=== PATIENT | female | born 1970 | race Caucasian/White ===

== ENCOUNTER 2016-07-14 15:33 | Emergency (ER) | payer OTHER ==
[~2016-07-14] VITALS: Ht 160 cm; Wt 78.1 kg
[~2016-07-14 15:33] MED LIST: IBUP-1542 PO
[2016-07-14 15:35] VITALS: Ht 160 cm; Wt 78.1 kg
[2016-07-14] MEDS ORDERED: DOCU-144 PO (17:30)
[2016-07-14] MEDS ORDERED: HC30CR25 TOP (17:30)
[2016-07-14] MEDS ORDERED: TRAM50TA2 PO (17:30)
--- NOTE | 2016-07-14 17:33 | ERD ---
ER Documentation Chief Complaint Date/Time DATE: 07/14/16 TIME: 17:32 Chief Complaint HAS HEMORRHOIDS, HAS RECTAL PA1N HPI This 45-year-old female complains of pain in her rectal area for last 4 days. She denies any previous history of hemorrhoids and denies any bleeding. She has no measured fevers. ROS All systems reviewed and are negative except as per history of present illness. Medications Home Meds Active Scripts Docusate Sodium* (Colace*) 100 Mg Capsule, 100 MG PO BID, #30 CAP Prov:SUMEET NATHAN MD 07/14/16 Tramadol HCl (Tramadol HCl) 50 Mg Tablet, 50 MG PO Q4 Y for PAIN, #20 TAB Prov:SUMEET NATHAN MD 07/14/16 Hydrocortisone* Topical (Hydrocortisone* Topical) 2.5%-28.3 Gm Cream..g., 1 APPLIC TOP BID for 10 Days, #1 TUB Prov:SUMEET NATHAN MD 07/14/16 Ibuprofen* (Motrin*) 600 Mg Tab, 600 MG PO Q8 for 10 Days, #30 TAB 0 Refills Prov:CHUCK WINSLOW PA-C 10/16/15 PMhx/Soc History of Surgery: Yes (CSECTION X2) Hx Miscellaneous Medical Probl: Yes (DM, ANEMIA, HERNIA) Hx Alcohol Use: No Hx Substance Use: No Hx Tobacco Use: No Smoking Status: Never smoker Physical Exam Vitals Vital Signs Date Time Temp Pulse Resp B/P Pulse Ox O2 Delivery O2 Flow Rate FiO2 07/14/16 15:35 99.1 90 18 157/89 99 Physical Exam Const: [] Alert, [id number] per Head: Atraumatic Eyes: Normal Conjunctiva ENT: Normal External Ears, Nose and Mouth. Neck: Full range of motion..~ No meningismus. Resp: Clear to auscultation bilaterally Cardio: Regular rate and rhythm, no murmurs Abd: Soft, non tender, non distended. Normal bowel sounds. Rectal exam with intelligence chief shows external hemorrhoids without evidence of bleeding, thrombosis, there is no signs or symptoms of fluctuance, erythema or induration. No appreciable gross blood or melanotic stool and no masses. Skin: No petechiae or rashes Back: No midline or flank tenderness Ext: No cyanosis, or edema Neur: Awake and alert Psych: Normal Mood and Affect Procedures/MDM Patient presents with signs and symptoms of acute hemorrhoids without evidence of abscess or thrombosis or obstruction. She will treated with hydrocortisone cream, Colace and tramadol instructions for warm baths and follow-up with primary care doctor. The patient was stable with no new complaints during the ER course. Clinically, there is no current evidence to suggest meningitis, sepsis, acute abdomen, pneumonia, acute coronary syndrome, pulmonary embolism, or any other emergent condition appearing to require further evaluation or hospitalization. The patient should certainly return for any new or worsening symptoms per the aftercare instructions. They should otherwise follow-up with her primary care doctor for reevaluation this week. Departure Diagnosis: Primary Impression: Acute hemorrhoid Condition: Stable Patient Instructions: Hemorrhoids Additional Instructions: SIENTE EN AGUA TIBIA. Cheque otro vez con jim doctor primario en el proximo melgar or regresa para mas o nueva simptomas. SUMEET NATHAN MD Jul 14, 2016 17:32
== END 2016-07-14 17:50 | disposition home or self-care (01) ==
LOC: FTE 15:33
DX: K64.4 Residual hemorrhoidal skin tags (principal); E11.9 Type 2 diabetes mellitus without complications
CPT/HCPCS: 99284

== ENCOUNTER 2016-12-05 14:28 | Emergency (ER) | payer SELFPAY ==
[~2016-12-05] VITALS: Ht 167.6 cm; Wt 99.5 kg
[~2016-12-05 14:28] MED LIST changes: +DOCU-144 PO; +HC30CR25 TOP; +TRAM50TA2 PO
[2016-12-05 14:30] VITALS: Ht 167.6 cm; Wt 99.5 kg
== END 2016-12-05 19:49 | disposition left against medical advice (07) ==
LOC: E/R 14:28
DX: Z53.21 Procedure and treatment not carried out due to patient leaving prior to being seen by health care provider (principal)

== ENCOUNTER 2018-02-17 14:50 | Emergency (ER) | END 2018-02-17 17:46 | disposition home or self-care (01) ==